=== PATIENT | female | born 2000 | race Caucasian/White ===

== ENCOUNTER 2021-02-17 06:41 | Emergency (ER) | payer OTHER ==
[~2021-02-17] VITALS: Ht 162.6 cm; Wt 68.2 kg
[2021-02-17 06:56] VITALS: BP 111/91; PULSE 78; TEMP 98
[2021-02-17] MEDS ORDERED: INDERAL 10MG10 MG (07:53)
[2021-02-17] MEDS ORDERED: CEPHALEXIN500 M1 PO (08:08)
== END 2021-02-17 08:30 | disposition home or self-care (01) ==
LOC: COL.ER 06:41
DX: S62.632A Displaced fracture of distal phalanx of right middle finger, initial encounter for closed fracture (principal); S61.212A Laceration without foreign body of right middle finger without damage to nail, initial encounter; W20.8XXA Other cause of strike by thrown, projected or falling object, initial encounter